=== PATIENT | female | born 1990 | race Caucasian/White ===

== ENCOUNTER 2020-12-03 12:05 | Emergency (ER) | payer OTHER ==
[2020-12-03 15:16] LABS: BILIRUBIN 1+ mg/dL (NEGATIVE); BLOOD NEGATIVE Ery/uL (NEGATIVE); CLARITY CLEAR (CLEAR); COLOR YELLOW (YELLOW); GLUCOSE (U) NORMAL (NORMAL); LEUKOCYTES NEGATIVE Leu/uL (NEGATIVE); NITRITE NEGATIVE (NEGATIVE); PROTEIN TRACE (LOW) mg/dL (NEGATIVE); UROBILINOGEN 0.2 mg/dL (0.2-1.0)
[2020-12-03 15:17] LABS: BASOPHIL 0 % (0-2); EOSINOPHIL 0.3 % (0-5); HCT 48.2 % (37.0-47.0); HGB 15.1 g/dl (12.5-16.0); LYMPHOCYTE 14.7 % (15-48); MCH 27.9 pg (25.0-31.0); MCHC 31.3 g/dL (32.0-36.0); MCV 89.1 fL (78.0-100.0); MONOCYTE 7.5 % (0-12); MPV 11.5 fL (6.0-9.5); NEUTROPHIL 76.9 % (41-80); NRBC 0; PLT 106 K/uL (150-400); RBC 5.41 M/uL (4.20-5.40); RDW 13.3 % (11.5-14.0); WBC 3.6 K/uL (4.0-10.5)
[2020-12-03 15:40] LABS: BACTERIA 1+; SQUAMOUS EPITHELIAL CELLS 20-50; URINARY RBC RARE
[2020-12-03 15:49] LABS: BUN/CREAT RATIO (CALC) 11.8 RATIO; CREATININE 0.76 mg/dL (0.51-0.95); POTASSIUM 3.9 mmol/L (3.5-5.1)
[2020-12-03] MEDS ORDERED: ZOFRAN4 M1 PO (16:21)
[2020-12-04] MEDS ORDERED: ATARAX25 MG PO (19:50)
[2020-12-04] MEDS ORDERED: SERTRALINE HCL50 MG PO (19:51)
[2020-12-04] MEDS ORDERED: BUPROPION XL300 MG PO (19:51)
[2020-12-04] MEDS ORDERED: PREDNISONE 20MG20 MG PO (21:01)
== END 2020-12-03 17:05 | disposition home or self-care (01) ==
LOC: FER 12:05
PROVIDERS: Nurse Practitioner Family
DX: U07.1 COVID-19 (principal); E86.0 Dehydration
CPT/HCPCS: 36415; 80048; 81001; 83880; 85025; J1885; J2405; J7030

== ENCOUNTER 2020-12-04 18:47 | Emergency (ER) | payer OTHER ==
[~2020-12-04 18:47] MED LIST: ZOFRAN4 M1 PO
[2020-12-04] MEDS ORDERED: ATARAX25 MG PO (19:50)
[2020-12-04] MEDS ORDERED: BUPROPION XL300 MG PO (19:51)
[2020-12-04] MEDS ORDERED: SERTRALINE HCL50 MG PO (19:51)
[2020-12-04] MEDS ORDERED: PREDNISONE 20MG20 MG PO (21:01)
== END 2020-12-04 21:08 | disposition home or self-care (01) ==
LOC: FER 18:47
DX: U07.1 COVID-19 (principal); J12.82 Pneumonia due to coronavirus disease 2019
CPT/HCPCS: 71275; J7030; J7512; Q9967